=== PATIENT | female | born 1955 | race Caucasian/White ===

== ENCOUNTER → 2017-11-28 08:31 | Outpatient (CLI) | payer OTHER, SELFPAY ==
[2017-11-28 09:50] LABS: Add Manual Diff / Slide Review NO; Basophils Percent Auto 0.7 % (0-2); Eosinophils Percent Auto 2.3 % (2-4); Hematocrit 41.6 % (36-46); Hemoglobin 14.6 g/dL (12.0-16.0); Lymphocytes Percent Auto 33.9 % (25-40); Mean Corpuscular HGB Conc 35.2 % (30-36); Mean Corpuscular Hemoglobin 32.2 PG (26-34); Mean Corpuscular Volume 91.6 fL (80-100); Monocytes Percent Auto 6.2 % (3-14); Neutrophils Absolute Auto 2300 /uL (3000-5900); Neutrophils Percent Auto 56.9 % (50-75); Platelet Count 197 X10^3/uL (150-400); Red Blood Cell Count 4.53 X10^6/uL (4.0-5.2); Red Cell Distribution Width 12.7 % (11.6-14.8); White Blood Cell Count 4.1 X10^3/uL (4.5-11.0)
[2017-11-28 10:27] LABS: Alanine Aminotransferase 28 IU/L (9-52); Albumin 4.4 g/dL (3.5-5.0); Albumin Globulin Ratio 1.3 (1.0-2.8); Alkaline Phosphatase 54 U/L (38-126); Aspartate Aminotransferase 36 IU/L (14-36); Bilirubin Total 0.8 mg/dL (0.2-1.3); Calcium 9.1 mg/dL (8.4-10.2); Cholesterol 183 mg/dL (140-199); Estimated Glomerular Filt Rate > 60.0 mL/min (>60); Globulin 3.4 g/dL (1.7-4.1); Glucose 92 mg/dL (80-110); HDL Cholesterol 71 mg/dL (40-60); HEMOLYSIS < 15 (0-50); LDL Cholesterol Calculated 97 mg/dL (<100); Sodium 142 mmol/L (137-145); Total Protein 7.8 g/dL (6.3-8.2); Triglycerides 74 mg/dL (35-150)
[2017-11-28 10:47] LABS: Thyroid Stimulating Hormone 0.79 uIU/mL (0.47-4.68)
[2017-12-02 16:41] LABS: QuantiFERON TB Negative (Negative)
== END ==
PROVIDERS: Family Provider Acupuncturist; PCP Acupuncturist; Visit Provider Acupuncturist
DX: Z00.00 Encounter for general adult medical examination without abnormal findings (principal)
CPT/HCPCS: 36415; 80053; 80061; 84443; 85025; 86480

== ENCOUNTER → 2021-11-29 15:25 | Outpatient (CLI) | payer OTHER, SELFPAY ==
--- NOTE | 2021-11-29 | DI.MG.S_ITS ---
BILATERAL DIGITAL SCREENING MAMMOGRAM 3D/2D WITH CAD: 11/29/2021 CLINICAL: Routine screening. Comparison is made to exam dated: [facility]. The tissue of both breasts is heterogeneously dense. This may lower the sensitivity of mammography. Current study was also evaluated with a Computer Aided Detection (CAD) system. No significant masses, calcifications, or other findings are seen in either breast. There has been no significant interval change. IMPRESSION: NEGATIVE There is no mammographic evidence of malignancy. A 1 year screening mammogram is recommended. This exam was interpreted at Station ID: [id number]. NOTE: For mammograms, a report in lay terms will be sent to the patient. Approximately 15% of breast malignancies will not be visualized mammographically. In the management of a palpable breast mass, a negative mammogram must not discourage biopsy of a clinically suspicious lesion. Electronically Signed By: Cisco [email or web address]:11/29/2021 15:48:51 copy to: NARINDER BETH letter sent: Normal Exam ACR BI-RADS Category 1: Negative [id number]
== END ==
PROVIDERS: Family Provider Acupuncturist; PCP Acupuncturist; Referring Provider Acupuncturist; Visit Provider Acupuncturist
DX: Z12.31 Encounter for screening mammogram for malignant neoplasm of breast (principal)
CPT/HCPCS: 77063; 77067